=== PATIENT | male | born 1945 | race Caucasian/White ===

== ENCOUNTER → 2022-10-15 12:49 | Outpatient (BNVA) | payer MEDICARE, OTHER, SELFPAY | PROVIDERS: PCP Internal Medicine; Visit Provider Neurological Surgery | DX: M43.16 Spondylolisthesis, lumbar region (principal); M48.062 Spinal stenosis, lumbar region with neurogenic claudication | CPT/HCPCS: 99212 ==

== ENCOUNTER 2022-12-28 08:18 | Inpatient (IN) | payer MEDICARE, OTHER, SELFPAY ==
[2022-12-14 12:13] VITALS: BP 136/62; PULSE 60; RESP 20; O2SAT 97; BMI 30.8
--- NOTE | 2022-12-14 12:23 | P.CONAN_ITS ---
Documented by User: Abiola Mo NP 12/17/22 14:22 HPI - Anesthesia Eval Consult details Narrative: 77yo M for L4-5 Oblique Lumbar Interbody Fusion, 12/28/22 Medically optimized Cardiac optimized (CAD with CABG 2015) Cleared by oncologist Pacer in situ left chest s/p RU lobectomy ~ 2020 r/t lung CA No recent illness. PND x 4 years. No CP/SOB with minimal activity r/t to pain Diabetic sensor on RUE. No insulin pump. FBS ~ 70-140 PMFSH Active Problems Active Problems: All Active Problems (Updated 12/14/22 @ 12:07 by Rossi Hurst RN) Spondylolisthesis, lumbar region (Acute) Lumbar stenosis with neurogenic claudication (Acute) Past Medical History Medical History Back pain CAD (coronary artery disease) Diabetes Elevated cholesterol Hx of cardiac pacemaker Lung cancer Silent myocardial infarction Spinal stenosis Family History Family history of problems with anesthesia: No Surgical History Surgical History H/O colonoscopy History of back surgery History of back surgery History of carpal tunnel release History of lobectomy of lung Hx of bilateral cataract extraction Hx of CABG Hx of tooth extraction History of Problems with Anesthesia: No Social History Social History Are you a primary respiratory care technician to a significant other at home: No Do you presently have visiting nurse or other home services: No Patient Tobacco Use Status: Former Tobacco user Quit Date: age 28's Tobacco use type: Cigarette Years Smoked: 14 Use of substances other than those prescribed or required for medical reasons: No Have you been hit, kicked, punched, or otherwise hurt by someone within the past year? If so, by whom?: No Are you DNR?: No Advance Directives Information Provided: Yes (advised to bring copy DOS) Advance Directives on File: No Recently lost weight without trying: No Eating poorly because of decreased appetite: No Nutrition Risks: No Nutritional Risk Poor oral hygiene: No (full upper denture, some missing teeth-lower but no denture or partial) Meds Allergies Allergy/AdvReac Type Severity Reaction Status Date / Time No Known Allergies Allergy Verified 12/28/22 08:30 Home Medications Medication Instructions Recorded Confirmed Last Taken Type amlodipine 5 mg tablet 5 mg PO DAILY 12/11/22 12/28/22 12/28/22 07:15 History aspirin 81 mg tablet,delayed 81 mg PO DAILY 12/11/22 12/28/22 12/21/22 History release atorvastatin 80 mg tablet 80 mg PO BEDTIME 12/11/22 12/28/22 Unknown History cholecalciferol (vitamin D3) 50 50 mcg PO DAILY 12/11/22 12/28/22 Unknown History mcg (2,000 unit) capsule (Vitamin D3) insulin aspart U-100 100 unit/mL 10 - 40 sliding scale dose subcut 12/11/22 12/28/22 Unknown History (3 mL) subcutaneous pen (Novolog TIDAC FlexPen U-100 Insulin aspart) insulin degludec 200 unit/mL (3 44 unit subcut QAM 12/11/22 12/28/22 12/28/22 07:15 History mL) subcutaneous pen (Tresiba FlexTouch U-200 insulin) metformin 500 mg tablet,extended 1,500 mg PO BEDTIME 12/11/22 12/28/22 Unknown History release 24 hr tramadol 50 mg tablet 50 - 100 mg PO BID PRN Pain 12/11/22 12/28/22 Unknown History metoprolol tartrate 50 mg tablet 25 mg PO BID 12/28/22 12/28/22 Unknown History (Lopressor) Exam Exam Date and Time: December 14, 2022 1223 Height,Weight and Vital Signs: Height 5 ft 7 in Weight 89.3 kg Last Vital Signs Pulse 60 12/14/22 12:13 Resp 20 12/14/22 12:13 BP 136/62 12/14/22 12:13 Pulse Ox 97 12/14/22 12:13 O2 Del Method Room Air 12/14/22 12:13 Pertinent Lab Results Pertinent Lab Results: BMP 11/2022 from outside facility WNL, A1C = 7.8 CBC 11/2022 from outside facility WNL except PLT = 130 Narrative Narrative: Pacer interrogation 12/08/22 normal device funtion without tackyarrhythmias per cardiac note EKG 12/2022 NSR @ 62 LAD Inferior infarct (old) ECHO 2021 LV size is nml. LV systolic function appears grossly nml. LV wall thickness is mildly increased. LVEF 60-65%. No obvious wall motion abnormalities. No dopplar evidence of increased filling pressures. Aortic valve poorly visualized. Probably trileaflet. No aortic stenosis. No aortic regurg. RV is poorly visualized. RV possibly dilated. Free wall not well visualized Pacer wire see in RV No sigificant pericardial effusion Airway Mallampati Class: II TM Dist: >3cm Neck ROM: Full Denture: Upper Loose/Missing/Broken Teeth: Yes (Missing lower teeth) Heart: RRR Lungs: CTAB (RUL dim s/p ectomy) Assessment and Plan Assessment Anesthesia Assessment: Anesthesia Plan Discussed and PAT Visit Final Anesthetic Review Family History of Problems with Anesthesia: No History of Problems with Anesthesia: No Documented by User: Jose Cote MD 12/28/22 10:12 [facility] Past Medical History Medical History Back pain CAD (coronary artery disease) Diabetes Elevated cholesterol Hx of cardiac pacemaker Lung cancer Silent myocardial infarction Spinal stenosis Surgical History Surgical History H/O colonoscopy History of back surgery History of back surgery History of carpal tunnel release History of lobectomy of lung Hx of bilateral cataract extraction Hx of CABG Hx of tooth extraction Social History Social History Are you a primary respiratory care technician to a significant other at home: No Do you presently have visiting nurse or other home services: No Patient Tobacco Use Status: Former Tobacco user Quit Date: age 28's Tobacco use type: Cigarette Years Smoked: 14 Use of substances other than those prescribed or required for medical reasons: No Have you been hit, kicked, punched, or otherwise hurt by someone within the past year? If so, by whom?: No Are you DNR?: No Advance Directives Information Provided: Yes (advised to bring copy DOS) Advance Directives on File: No Recently lost weight without trying: No Eating poorly because of decreased appetite: No Nutrition Risks: No Nutritional Risk Poor oral hygiene: No (full upper denture, some missing teeth-lower but no denture or partial) Meds Allergies Allergy/AdvReac Type Severity Reaction Status Date / Time No Known Allergies Allergy Verified 12/28/22 08:30 Home Medications Medication Instructions Recorded Confirmed Last Taken Type amlodipine 5 mg tablet 5 mg PO DAILY 12/11/22 12/28/22 12/28/22 07:15 History aspirin 81 mg tablet,delayed 81 mg PO DAILY 12/11/22 12/28/22 12/21/22 History release atorvastatin 80 mg tablet 80 mg PO BEDTIME 12/11/22 12/28/22 Unknown History cholecalciferol (vitamin D3) 50 50 mcg PO DAILY 12/11/22 12/28/22 Unknown History mcg (2,000 unit) capsule (Vitamin D3) insulin aspart U-100 100 unit/mL 10 - 40 sliding scale dose subcut 12/11/22 12/28/22 Unknown History (3 mL) subcutaneous pen (Novolog TIDAC FlexPen U-100 Insulin aspart) insulin degludec 200 unit/mL (3 44 unit subcut QAM 12/11/22 12/28/22 12/28/22 07:15 History mL) subcutaneous pen (Tresiba FlexTouch U-200 insulin) metformin 500 mg tablet,extended 1,500 mg PO BEDTIME 12/11/22 12/28/22 Unknown History release 24 hr tramadol 50 mg tablet 50 - 100 mg PO BID PRN Pain 12/11/22 12/28/22 Unknown History metoprolol tartrate 50 mg tablet 25 mg PO BID 12/28/22 12/28/22 Unknown History (Lopressor) Assessment and Plan Final Anesthetic Review NPO: Yes ASA Class: IV Final Preanesthetic Review: No Changes in Pt Med Stat, Meds/Allgs Chart Reviewed, Consent Obtained/Reviewed and Anes Risks/Benef Reviewed Patient Risk: High Procedure Risk: Intermediate Anesthetic Plan Anesthetic Plan: GA and Agree w/ Assess. and Plan Disposition: Standard PACU
[2022-12-28] VITALS (13 sets, daily range): BP systolic 109–172; BP diastolic 61–84; PULSE 60–70; RESP 16–20; TEMP 36.2–36.6; O2SAT 98–100
--- NOTE | ~2022-12-28 | FL_ITS ---
EXAMINATION: XR FLUOROSCOPY WITH IMAGES CLINICAL INFORMATION: Oblique lateral interbody fusion. COMPARISON: None available. TECHNIQUE: Performed by Dr. Waters. 2 C-arms used. Total Dose: 106.2 mGy-cm. Fluoro Time: 1.5 minutes. DAP: 2.527 mGy-m2 Images: 5 images. FINDINGS: Fluoroscopy guidance provided for posterior fusion hardware placement with bilateral transpedicular screws and posterior rods at L4-L5 and L4-L5 disc prosthesis. FL/FL guidance in OR IMPRESSION: Fluoroscopy guidance for lumbar spine surgery.
--- OUTSIDE RECORDS SUMMARY | 2022-12-28 08:26 | XMS_ITS | Continuity of Care Document ---
Author Name Unknown Organization [facility] Address [address] [place] [address]- Care Team Providers Care Stores Naval Name Role Phone Ciro Ragsdale MD Primary Care Physician [place] [facility] [place] [facility] [address] [place] [address] [facility] Attending Physician: Carolyn Yanes MD Admitting Physician: Carolyn Yanes MD Referring Physician: Ciro Ragsdale MD Allergies, Adverse Reactions, Alerts Substance Reaction Severity Status Percocet 5/325 Active Medications aspirin 81 mg oral tablet 81, mg, 1, tablet, By Mouth, Daily, 0, 0, 11/05/07 17:55:02, Print MARINE Number, [id number], Constant Indicator Start Date: 11/05/07 Status: Ordered atorvastatin 40 mg oral tablet 1 tablet = 40 mg, By Mouth, Every other day, 0 Refills, Maintenance, 12/21/19 13:10:00 EDT Start Date: 12/21/19 Status: Ordered Glucagon Emergency Kit See Instructions, PRN, # 2 each, Refills 3, Tot. Refills 3, Maintenance, Blood Glucose, use as directed for Type 1 Diabetes Mellitus, 06/01/16 18:10:28, Compound Start Date: 06/01/16 Stop Date: 09/29/16 Status: Ordered latanoprost 0.005% ophthalmic solution 1 drops, Eyes, Both, Daily at bedtime, # 3 mL, 0 Refills, Maintenance, 12/21/19 13:09:00 EDT, OphthSolution Start Date: 12/21/19 Status: Ordered loratadine 10 mg oral tablet 10 mg, 1, tablet, By Mouth, Daily, # 90 tablet, Refills 0, Maintenance, 12/21/19 13:10:00 EDT Start Date: 12/21/19 Status: Ordered metFORMIN 500 mg oral tablet 3 tablet = 1,500 mg, By Mouth, Daily, 0 Refills, Maintenance, 12/21/19 13:11:00 EDT Start Date: 12/21/19 Status: Ordered NovoLOG FlexPen 100 units/mL subcutaneous solution See Instructions, INJECT 40 UNITS SC BEFORE EACH MEAL. DM / E 10.65 90 DAY = 7 BOXES, # 105 mL, 0 Refills, Maintenance, 09/14/16 18:08:00 Start Date: 09/14/16 Status: Ordered One Touch Ultra Test Strips See Instructions, # 550 each, Refills 3, Tot. Refills 3, Maintenance, check glucose TID ac and pc, up to 6 per day, 12/02/16 11:44:00, NO FURTHER REFILLS - PATIENT NEEDS TO CALL [phone] FOR APPT OR CONTACT PCP, Compound Start Date: 12/02/16 Status: Ordered Tresiba FlexTouch 200 units/mL subcutaneous solution = 72 units, Subcutaneous Infusion, Daily, 0 Refills, Maintenance, 06/01/16 14:00:54 EST Start Date: 06/01/16 Status: Ordered Problem List Condition Effective Dates Status Health Status Inform ant Diabetes, insulin(Confirmed) Active SOBOE (shortness of breath o n exertion)(Confirmed) Active Hemangioma of liver(Confirmed) Active HLD (hyperlipidemia)(Confirmed) Active HTN (hypertension)(Confirmed) Active Hypertriglyceridemia(Confirmed) Active Hypothyroid(Confirmed) Active Lumbar spinal stenosis(Confirmed) Active Neuropathy(Confirmed) Active Obesity(Confirmed) Active Old inferior myocardial infarction(Confirmed) 11/04/12 Active Retinopathy(Confirmed) Active Triple vessel coronary arter y disease(Confirmed) Active Social History Social History Type Response Smoking Status Former smoker, quit more than 30 days ago entered on: 02/23/19 Sex
--- OUTSIDE RECORDS SUMMARY | 2022-12-28 08:26 | XMS_ITS | Continuity of Care Document ---
Author Name Unknown Organization [facility] Address [address] [place] [address]- Care Team Providers Care Accounts Supervisor Name Role Phone Ciro Ragsdale MD Primary Care Physician [place] [facility] [place]/17/19 - 04/27/19 [facility] [address] [place] [address]- [facility] Attending Physician: Admtr, Viv Admitting Physician: Admtr, Ar8 Referring Physician: Admtr, Ar8 Allergies, Adverse Reactions, Alerts Substance Reaction Severity Status Percocet 5/325 Active Medications aspirin 81 mg oral tablet 81, mg, 1, tablet, By Mouth, Daily, 0, 0, 11/05/07 17:55:02, Print MARINE Number, [id number], Constant Indicator Start Date: 11/05/07 Status: Ordered atorvastatin 80 mg oral tablet 0.5 tablet = 40 mg, By Mouth, Daily at bedtime, EVERY OTHER DAY, 0 Refills, Maintenance Start Date: 10/03/15 Status: Ordered fluticasone 50 mcg/inh nasal spray 1 sprays, Nares, Both, 2 times a day, # 16 Gm, 0 Refills, Maintenance, 01/12/19 14:57:22 EDT, [place] Start Date: 01/12/19 Status: Ordered Glucagon Emergency Kit See Instructions, PRN, # 2 each, Refills 3, Tot. Refills 3, Maintenance, Blood Glucose, use as directed for Type 1 Diabetes Mellitus, 06/01/16 18:10:28, Compound Start Date: 06/01/16 Stop Date: 09/29/16 Status: Ordered metFORMIN 500 mg oral tablet, extended release 1 tablet = 500 mg, By Mouth, 3 times a day before meals, # 270 tablet, 3 Refills, Maintenance, 06/01/16 18:10:52 Start Date: 06/01/16 Status: Ordered montelukast 10 mg oral tablet 10 mg, 1, tablet, By Mouth, Daily, Refills 0, Maintenance, 01/12/19 14:57:07 EDT Start Date: 01/12/19 Status: Ordered NovoLOG FlexPen 100 units/mL subcutaneous solution See Instructions, INJECT 40 UNITS SC BEFORE EACH MEAL. DM 1/ E 10.65 90 DAY = 7 BOXES, # 105 mL, 0 Refills, Maintenance, 09/14/16 18:08:00 Start Date: 09/14/16 Status: Ordered NovoLog Inj as directed, Subcutaneous Infusion, 3 times a day, inject 40 units sc before each meal. Novolog Flex Pen, 0 Refills, Maintenance, 12/08/10 16:25:38 Start Date: 12/08/10 Status: Ordered One Touch Ultra Test Strips See Instructions, # 550 each, Refills 3, Tot. Refills 3, Maintenance, check glucose TID ac and pc, up to 6 per day, 12/02/16 11:44:00, NO FURTHER REFILLS - PATIENT NEEDS TO CALL [phone] FOR APPT OR CONTACT PCP, Compound Start Date: 12/02/16 Status: Ordered Tresiba FlexTouch 200 units/mL subcutaneous solution Subcutaneous Infusion, Daily, 0 Refills, Maintenance, 06/01/16 14:00:54 Start Date: 06/01/16 Status: Ordered Problem List Condition Effective Dates Status Health Status Inform ant Diabetes, insulin(Confirmed) Active SOBOE (shortness of breath o n exertion)(Confirmed) Active Hemangioma of liver(Confirmed) Active HLD (hyperlipidemia)(Confirmed) Active HTN (hypertension)(Confirmed) Active Hypertriglyceridemia(Confirmed) Active Hypothyroid(Confirmed) Active Lumbar spinal stenosis(Confirmed) Active Neuropathy(Confirmed) Active Obesity(Confirmed) Active 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
--- OUTSIDE RECORDS SUMMARY | 2022-12-28 08:27 | XMS_ITS | Continuity of Care Document ---
Author Name Unknown Organization [facility] Address [address] [place] [address]- Care Team Providers Care Mortgage Sales Manager Name Role Phone Ciro Ragsdale MD Primary Care Physician [place] [facility] [place]19 [facility] [address] [place] [phone]- [facility] Attending Physician: Haroldo Franco MD Admitting Physician: Haroldo Franco MD Referring Physician: Ciro Ragsdale MD Allergies, Adverse Reactions, Alerts Substance Reaction Severity Status Percocet 5/325 Active Medications aspirin 81 mg oral tablet 81, mg, 1, tablet, By Mouth, Daily, 0, 0, 11/05/07 17:55:02, Print MARINE Number, [id number], Constant Indicator Start Date: 11/05/07 Status: Ordered Glucagon Emergency Kit See Instructions, PRN, # 2 each, Refills 3, Tot. Refills 3, Maintenance, Blood Glucose, use as directed for Type 1 Diabetes Mellitus, 06/01/16 18:10:28, Compound Start Date: 06/01/16 Stop Date: 09/29/16 Status: Ordered NovoLOG FlexPen 100 units/mL subcutaneous [...] FURTHER REFILLS - PATIENT NEEDS TO CALL [phone] FOR APPT OR CONTACT PCP, Compound Start Date: 12/02/16 Status: Ordered Tresiba FlexTouch 200 units/mL subcutaneous solution = 68 units, Subcutaneous Infusion, Daily, 0 Refills, Maintenance, [...]
--- OUTSIDE RECORDS SUMMARY | 2022-12-28 08:27 | XMS_ITS | Continuity of Care Document ---
Author Name Unknown Organization [facility] Address [address] [place] [address]- Care Team Providers Care Medication Administration Professional Name Role Phone Ciro Ragsdale MD Primary Care Physician En[place] [facility] [place] Date(s): 12/10/20 - 01/25/21 [facility] [address] [place] [address]- Attending Physician: Lester Pedroza MD Admitting Physician: Lester Pedroza MD Referring Physician: Ciro Ragsdale MD Allergies, Adverse Reactions, Alerts Substance Reaction Severity Status Percocet 5/325 Active Medications amLODIPine 5 mg oral tablet 5 mg, 1, tablet, By Mouth, Daily, # 30 tablet, Refills 0, Tot. Refills 0, Maintenance, 06/12/20 9:51:00 EST, Route to Pharmacy Electronically, [facility]/pharmacy #[id number], Partial fill upon patient request ifthe prescription is for a schedule II opioid drug.,... Start Date: 06/12/20 Status: Ordered aspirin 81 mg oral tablet 81, mg, 1, tablet, By Mouth, Daily, 0, 0, 11/05/07 17:55:02, Print MARINE Number, [id number], Constant Indicator Start Date: 11/05/07 Status: Ordered atorvastatin 40 mg oral tablet 1 tablet = 40 mg, By Mouth, Every other day, 0 Refills, Maintenance, 12/21/19 13:10:00 EDT Start Date: 12/21/19 Status: Ordered famotidine 40 mg oral tablet 1 tablet = 40 mg, By Mouth, Daily at bedtime, 0 Refills, Maintenance, 12/19/20 10:07:00 EDT, Partial fill upon patient request if the prescription is for a schedule II opioid drug. Start Date: 12/19/20 Status: Ordered Glucagon Emergency Kit See Instructions, [...] FURTHER REFILLS - PATIENT NEEDS TO CALL [phone] FOR APPT OR CONTACT PCP, Compound Start [...]
--- OUTSIDE RECORDS SUMMARY | 2022-12-28 08:27 | XMS_ITS | Continuity of Care Document ---
Author Name Unknown Organization [facility] ter Address [address] [place] [address]- Care Team Providers Care Informix Developer Name Role Phone Ciro Ragsdale MD Primary Care Physician [place] [facility] [place] 12/03/21 - 12/03/[address] [address]- Attending Physician: Stephanie Ellison MD Allergies, Adverse Reactions, Alerts Substance Reaction Severity Status Percocet 5/325 Active Medications amLODIPine 5 mg oral tablet 5 mg, 1, tablet, By Mouth, Daily, # 30 tablet, Refills 0, Tot. Refills 0, Maintenance, 06/12/20 9:51:00 EST, Route to Pharmacy Electronically, [facility]/pharmacy #[id number], Partial fill upon patient request ifthe prescription is for a schedule II opioid drug.,... Start Date: 06/12/20 Status: Ordered aspirin 81 mg oral tablet 81, mg, 1, tablet, By Mouth, Daily, 0, 0, 11/05/07 17:55:02, Print MARINE Number, [id number], Constant Indicator Start Date: 11/05/07 Status: Ordered [...] Date: 06/01/16 Stop Date: 09/29/16 Status: Ordered Keytruda = 200 mg, IV Infusion, Every 21 days, 0 Refills, Maintenance, 08/05/21 8:18:00 EDT, Partial fill upon patient request if the prescription is for a schedule II opioid drug. 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
--- OUTSIDE RECORDS SUMMARY | 2022-12-28 08:27 | XMS_ITS | Continuity of Care Document ---
Author Name Unknown Organization [facility] Address [address] [place], [place] [address]viki rooney, [address] [place] [address]- Care Team Providers Care Patron Attendant Name Role Phone Ciro Ragsdale MD Primary Care Physician Encounter [facility] [place] Date(s): 08/04/22 - 09/03/[address], [address] [place], [place] [address] Attending Physician: Admtr, Constantine8 Admitting Physician: Admtr, Ar8 Referring Physician: Admtr, Ar8 Allergies, Adverse Reactions, Alerts Substance Reaction Severity Status Percocet 5/325 Active Medications amLODIPine 5 mg oral tablet 5 mg, 1, tablet, By Mouth, Daily, # 30 tablet, Refills 0, Tot. Refills 0, Maintenance, 06/12/20 9:51:00 EST, Route to Pharmacy Electronically, [facility]/pharmacy #[id number], Partial fill upon patient request ifthe prescription is for a schedule II opioid drug.,... Start Date: 06/12/20 Status: Ordered aspirin 81 mg oral tablet 81, mg, 1, tablet, By Mouth, Daily, 0, 0, 11/05/07 17:55:02, Print MARINE Number, [id number], Constant Indicator Start Date: 11/05/07 Status: Ordered [...] FURTHER REFILLS - PATIENT NEEDS TO CALL [phone] FOR APPT OR CONTACT PCP, Compound Start Date: 12/02/16 Status: Ordered Tresiba FlexTouch 200 units/mL subcutaneous solution = 72 units, Subcutaneous Infusion, Daily, 0 Refills, Maintenance, 06/01/16 14:00:54 EST Start Date: 06/01/16 Status: Ordered Problem List Condition Confirmation Course Effective Dates Status Health Status Informant Diabetes, insulin Confirmed Active SOBOE (shortness of breath on exertion) Confirmed Active Hemangioma of liver Confirmed Active HLD (hyperlipidemia) Confirmed Active HTN (hypertension) Confirmed Active Hypertriglyceridemia Confirmed Active Hypothyroid Confirmed Active Lumbar spinal stenosis Confirmed Active Neuropathy Confirmed Active Obese class I Confirmed Active Obesity Confirmed Active Old inferior myocardial infarction Confirmed 11/04/12 Active Retinopathy Confirmed Active Triple vessel coronary artery disease Confirmed Active Social History Social History Type Response Smoking Status Former smoker, quit more than 30 days ago entered on: 02/23/19 Sex Note * Gisella Avila: PERFORM Event Display: Cardiovascular Results Scanned Authored Date: [id number] * Gisella Avila: PERFORM Event Display: Laboratory Results Scanned Authored Date: [id number] * Sami Miller: PERFORM Event Display: Radiology Results Scanned Authored Date: [id number] Patient Care team information Care Team Personnel Name: Carol Meade RN Position: [facility] RN Member Role: Primary Care Nurse Name: Samuel Richmond RN Position: [facility] JULISSA Nurse Member Role: Primary Care Nurse Name: González Chavez RN Position: [facility] RN Member Role: Primary Care Nurse Name: Ciro Ragsdale MD Position: [facility] Physician (General Medicine) Member Role: PCP Address: Address: [address] [place] [address] Care Team Related Persons Name: MEI CONNOR Address: [address] [address]
--- OUTSIDE RECORDS SUMMARY | 2022-12-28 08:27 | XMS_ITS | Continuity of Care Document ---
Author Name Unknown Organization [facility] Address [address] [place] [address]- Care Team Providers Care Millroom Supervisor Name Role Phone Ragsdale Ciro CASTRO S Primary Care Physician Encounter [facility] [place] Date(s): 03/02/22 - 04/01/22 [facility] [address] [place] [address]- Attending Physician: Viv Doty Admitting Physician: Viv Doty Referring Physician: AdmtrViv Allergies, Adverse Reactions, Alerts Substance Reaction Severity Status Percocet 5/325 Active Medications amLODIPine 5 mg oral tablet 5 mg, 1, tablet, By Mouth, Daily, # 30 tablet, Refills 0, Tot. Refills 0, Maintenance, 06/12/20 9:51:00 EST, Route to Pharmacy Electronically, [facility]/pharmacy #[id number], Partial fill upon patient request ifthe prescription is for a schedule II opioid drug.,... Start Date: 06/12/20 Status: Ordered aspirin 81 mg oral tablet 81, mg, 1, tablet, By Mouth, Daily, 0, 0, 11/05/07 17:55:02, Print MARINE Number, [id number], Constant Indicator Start Date: 11/05/07 Status: Ordered [...] FURTHER REFILLS - PATIENT NEEDS TO CALL [phone] FOR APPT OR CONTACT PCP, Compound Start [...] 30 days ago entered on: 02/23/19 Sex Patient Care team information Care Team Personnel Name: Carol Meade RN Position: [facility] RN Member Role: Primary Care Nurse Name: Samuel Richmond RN Position: [facility] AMB Nurse Member Role: Primary Care Nurse Name: Scott RATLIFF, González Franklin Position: [facility] RN Member Role: Primary Care Nurse Name: Melyssa CASTRO, Ciro Franklin Position: [facility] Physician (General Medicine) Member Role: PCP Address: Address: [address] [place] [address] Care Team Related Persons Name: MEI CONNOR Address: [address] [address]
--- OUTSIDE RECORDS SUMMARY | 2022-12-28 08:27 | XMS_ITS | Continuity of Care Document ---
Author Name Unknown Organization [facility] Address [address] [place] [address]- Care Team Providers Care Hand Leather Trimmer Name Role Phone Ciro Ragsdale MD S Primary Care Physician Encounter [facility] [place] Date(s): 06/05/20 - 07/05/20 [facility] [address] [place] [id number] Allergies, Adverse Reactions, Alerts Substance Reaction Severity Status Percocet 5/325 Active Medications amLODIPine 5 mg oral tablet 5 mg, 1, tablet, By Mouth, Daily, # 30 tablet, Refills 0, Tot. Refills 0, Maintenance, 06/12/20 9:51:00 EST, Route to Pharmacy Electronically, [facility]/pharmacy #[id number], Partial fill upon patient request ifthe prescription is for a schedule II opioid drug.,... Start Date: 06/12/20 Status: Ordered aspirin 81 mg oral tablet 81, mg, 1, tablet, By Mouth, Daily, 0, 0, 11/05/07 17:55:02, Print MARINE Number, [id number], Constant Indicator Start Date: 11/05/07 Status: Ordered [...] FURTHER REFILLS - PATIENT NEEDS TO CALL [phone] FOR APPT OR CONTACT PCP, Compound Start [...]
--- OUTSIDE RECORDS SUMMARY | 2022-12-28 08:27 | XMS_ITS | Continuity of Care Document ---
Author Name Unknown Organization [facility] Address [address] [place] [address]- Care Team Providers Care Reinforcing Rod Layer Name Role Phone Ciro Ragsdale MD Primary Care Physician [place] [facility] [place]/16/20 - 08/14/20 [facility] [address] [place] [id number] Attending Physician: Lester Pedroza MD Admitting Physician: Lester Pedroza MD Referring Physician: Ciro Ragsdale MD Allergies, Adverse Reactions, Alerts Substance Reaction Severity Status Percocet 5/325 Active Medications amLODIPine 5 mg oral tablet 5 mg, 1, tablet, By Mouth, Daily, # 30 tablet, Refills 0, Tot. Refills 0, Maintenance, 06/12/20 9:51:00 EST, Route to Pharmacy Electronically, [facility]/pharmacy #[id number], Partial fill upon patient request ifthe prescription is for a schedule II opioid drug.,... Start Date: 06/12/20 Status: Ordered aspirin 81 mg oral tablet 81, mg, 1, tablet, By Mouth, Daily, 0, 0, 11/05/07 17:55:02, Print MARINE Number, [id number], Constant Indicator Start Date: 11/05/07 Status: Ordered [...] FURTHER REFILLS - PATIENT NEEDS TO CALL [phone] FOR APPT OR CONTACT PCP, Compound Start [...]
--- OUTSIDE RECORDS SUMMARY | 2022-12-28 08:27 | XMS_ITS | Continuity of Care Document ---
Author Name Unknown Organization [facility] Address [address] [place] [address]- Care Team Providers Care Quarantine Officer Name Role Phone Ciro Ragsdale MD Primary Care Physician Encounter [facility] [place] Date(s): 12/21/19 - 01/20/20 [facility] [address] [place] [address] [facility] Attending Physician: AdmViv escobar Admitting Physician: Admtr, Viv Referring Physician: Admtr, Ar8 Allergies, Adverse Reactions, Alerts Substance Reaction Severity Status Percocet 5/325 Active Medications aspirin 81 mg oral tablet 81, mg, 1, tablet, By Mouth, Daily, 0, 0, 11/05/07 17:55:02, Print MARINE Number, [id number], Constant Indicator Start Date: 11/05/07 Status: Ordered [...] FURTHER REFILLS - PATIENT NEEDS TO CALL [phone] FOR APPT OR CONTACT PCP, Compound Start [...]
--- OUTSIDE RECORDS SUMMARY | 2022-12-28 08:27 | XMS_ITS | Continuity of Care Document ---
Author Name Unknown Organization [facility] Address [address] [place] [address]- Care Team Providers Care Front Desk Assistant Name Role Phone Ragsdale Ciro CASTRO S Primary Care Physician [place] [facility] [place] Date(s): 12/25/21 - 01/24/22 [facility] [address] [place] [address]- Attending Physician: Viv Doty Admitting Physician: Viv Doty Referring Physician: AdmtrViv Allergies, Adverse Reactions, Alerts Substance Reaction Severity Status Percocet 5/325 Active Medications amLODIPine 5 mg oral tablet 5 mg, 1, tablet, By Mouth, Daily, # 30 tablet, Refills 0, Tot. Refills 0, Maintenance, 06/12/20 9:51:00 EST, Route to Pharmacy Electronically, [facility]/pharmacy #[id number], Partial fill upon patient request ifthe prescription is for a schedule II opioid drug.,... Start Date: 06/12/20 Status: Ordered aspirin 81 mg oral tablet 81, mg, 1, tablet, By Mouth, Daily, 0, 0, 11/05/07 17:55:02, Print MARINE Number, [id number], Constant Indicator Start Date: 11/05/07 Status: Ordered [...] FURTHER REFILLS - PATIENT NEEDS TO CALL [phone] FOR APPT OR CONTACT PCP, Compound Start [...] 30 days ago entered on: 02/23/19 Sex Care Team Personnel Name: Ciro Ragsdale MD Address: [address] [place] [address]
--- OUTSIDE RECORDS SUMMARY | 2022-12-28 08:27 | XMS_ITS | Continuity of Care Document ---
Author Name Unknown Organization [facility] Address [address] [place] [address]- Care Team Providers Care Transcriber Name Role Phone Ragsdale Ciro CASTRO S Primary Care Physician Encounter [facility] [place] Date(s): 08/05/21 - 09/04/21 [facility] [address] [place] [address]- Attending Physician: Viv Doty Admitting Physician: Viv Doty Referring Physician: AdmtrViv Allergies, Adverse Reactions, Alerts Substance Reaction Severity Status Percocet 5/325 Active Medications amLODIPine 5 mg oral tablet 5 mg, 1, tablet, By Mouth, Daily, # 30 tablet, Refills 0, Tot. Refills 0, Maintenance, 06/12/20 9:51:00 EST, Route to Pharmacy Electronically, [facility]/pharmacy #[id number], Partial fill upon patient request ifthe prescription is for a schedule II opioid drug.,... Start Date: 06/12/20 Status: Ordered aspirin 81 mg oral tablet 81, mg, 1, tablet, By Mouth, Daily, 0, 0, 11/05/07 17:55:02, Print MARINE Number, [id number], Constant Indicator Start Date: 11/05/07 Status: Ordered [...] FURTHER REFILLS - PATIENT NEEDS TO CALL [phone] FOR APPT OR CONTACT PCP, Compound Start [...]
--- OUTSIDE RECORDS SUMMARY | 2022-12-28 08:27 | XMS_ITS | Continuity of Care Document ---
Author Name Unknown Organization [facility] Address [address] [address]- Care Team Providers Care Take Away Attendant Name Role Phone Ciro Ragsdale MD Primary Care Physician Encounter [facility] [place] Date(s): 12/25/20 - 01/24/21 [facility] [address] [address] Referring Physician: Khadijah Vaughan Allergies, Adverse Reactions, Alerts Substance Reaction Severity Status Percocet 5/325 Active Medications amLODIPine 5 mg oral tablet 5 mg, 1, tablet, By Mouth, Daily, # 30 tablet, Refills 0, Tot. Refills 0, Maintenance, 06/12/20 9:51:00 EST, Route to Pharmacy Electronically, [facility]/pharmacy #[id number], Partial fill upon patient request ifthe prescription is for a schedule II opioid drug.,... Start Date: 06/12/20 Status: Ordered aspirin 81 mg oral tablet 81, mg, 1, tablet, By Mouth, Daily, 0, 0, 11/05/07 17:55:02, Print MARINE Number, [id number], Constant Indicator Start Date: 11/05/07 Status: Ordered [...] FURTHER REFILLS - PATIENT NEEDS TO CALL [phone] FOR APPT OR CONTACT PCP, Compound Start [...]
--- OUTSIDE RECORDS SUMMARY | 2022-12-28 08:27 | XMS_ITS | Continuity of Care Document ---
Author Name Unknown Organization [facility] Address [address] [place] [address]- Care Team Providers Care Inventory Control Clerk Name Role Phone Ciro Ragsdale MD Primary Care Physician Encounter [facility] [place] Date(s): 08/07/19 - 08/17/19 [facility] [address] [place] [address]- [facility] Attending Physician: Admtr, Ar8 Admitting Physician: Admtr, Ar8 Referring Physician: Admtr, Ar8 Allergies, Adverse Reactions, Alerts Substance Reaction Severity Status Percocet 5/325 Active Medications aspirin 81 mg oral tablet 81, mg, 1, tablet, By Mouth, Daily, 0, 0, 11/05/07 17:55:02, Print MARINE Number, [id number], Constant Indicator Start Date: 11/05/07 Status: Ordered [...] FURTHER REFILLS - PATIENT NEEDS TO CALL [phone] FOR APPT OR CONTACT PCP, Compound Start [...]
--- OUTSIDE RECORDS SUMMARY | 2022-12-28 08:27 | XMS_ITS | Continuity of Care Document ---
Author Name Unknown Organization [facility] Address [address] [place] [address]- Care Team Providers Care Flight Operations Dispatch Clerk Name Role Phone Ciro Ragsdale MD Primary Care Physician Encounter [facility] [place] Date(s): 04/21/19 - 06/10/19 [facility] [address] [place] [address]- [facility] Attending Physician: Lester Pedroza MD Admitting Physician: Lester Pedroza MD Referring Physician: Ciro Ragsdale MD Allergies, Adverse Reactions, Alerts Substance Reaction Severity Status Percocet 5/325 Active Medications aspirin 81 mg oral tablet 81, mg, 1, tablet, By Mouth, Daily, 0, 0, 11/05/07 17:55:02, Print MARINE Number, [id number], Constant Indicator Start Date: 11/05/07 Status: Ordered [...] FURTHER REFILLS - PATIENT NEEDS TO CALL [phone] FOR APPT OR CONTACT PCP, Compound Start [...]
--- OUTSIDE RECORDS SUMMARY | 2022-12-28 08:27 | XMS_ITS | Continuity of Care Document ---
Author Name Unknown Organization [facility] Address [address] [address]- Care Team Providers Care Steam Shovel Oiler Name Role Phone Ciro Ragsdale MD Primary Care Physician Encounter [facility] [place] Date(s): 10/29/20 - 11/28/20 [facility] [address] [address] Allergies, Adverse Reactions, Alerts Substance Reaction Severity Status Percocet 5/325 Active Medications amLODIPine 5 mg oral tablet 5 mg, 1, tablet, By Mouth, Daily, # 30 tablet, Refills 0, Tot. Refills 0, Maintenance, 06/12/20 9:51:00 EST, Route to Pharmacy Electronically, [facility]/pharmacy #[id number], Partial fill upon patient request ifthe prescription is for a schedule II opioid drug.,... Start Date: 06/12/20 Status: Ordered aspirin 81 mg oral tablet 81, mg, 1, tablet, By Mouth, Daily, 0, 0, 11/05/07 17:55:02, Print MARINE Number, [id number], Constant Indicator Start Date: 11/05/07 Status: Ordered [...] FURTHER REFILLS - PATIENT NEEDS TO CALL [phone] FOR APPT OR CONTACT PCP, Compound Start [...]
--- OUTSIDE RECORDS SUMMARY | 2022-12-28 08:27 | XMS_ITS | Continuity of Care Document ---
Author Name Unknown Organization [facility] Address [address] [place] [address]- Care Team Providers Care Practicing Dermatologist Name Role Phone Ciro Ragsdale MD Primary Care Physician En[place] [facility] [place] Date(s): 04/20/19 - 08/18/[address] [address] [place] Attending Physician: Radha Quinones MD Admitting Physician: Radha Quinones MD Referring Physician: Carolyn Yanes MD Allergies, Adverse Reactions, Alerts Substance Reaction Severity Status Percocet 5/325 Active Medications aspirin 81 mg oral tablet 81, mg, 1, tablet, By Mouth, Daily, 0, 0, 11/05/07 17:55:02, Print MARINE Number, [id number], Constant Indicator Start Date: 11/05/07 Status: Ordered [...] 0 Refills, Maintenance, 12/08/10 16:25:38 Start Date: 8/1/11 Status: Ordered One Touch Ultra Test Strips See Instructions, # 550 each, Refills 3, Tot. Refills 3, Maintenance, check glucose TID ac and pc, up to 6 per day, 12/02/16 11:44:00, NO FURTHER REFILLS - PATIENT NEEDS TO CALL [phone] FOR APPT OR CONTACT PCP, Compound Start [...]
--- OUTSIDE RECORDS SUMMARY | 2022-12-28 08:27 | XMS_ITS | Continuity of Care Document ---
Author Name Unknown Organization [facility] Address [address] [place], [place] [address]viki rooney, [address] [place] [address]- Care Team Providers Care Grey Roll Man Name Role Phone Ciro Ragsdale MD Primary Care Physician Encounter [facility] [place] Date(s): 08/04/22 - 08/11/22 [facility] [address] [place] [address] Drive, [address] [place], [place] [address] Attending Physician: Pedrito Garcia MD Referring Physician: Buddy Hoffman MD Allergies, Adverse Reactions, Alerts Substance Reaction Severity Status Percocet 5/325 Active Medications amLODIPine 5 mg oral tablet 5 mg, 1, tablet, By Mouth, Daily, # 30 tablet, Refills 0, Tot. Refills 0, Maintenance, 06/12/20 9:51:00 EST, Route to Pharmacy Electronically, [facility]/pharmacy #[id number], Partial fill upon patient request ifthe prescription is for a schedule II opioid drug.,... 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 Vital Signs Most recent to oldest [Reference Range]: 1 Height 170 cm (08/04/22 2:59 PM) Weight 97.4 kg (08/04/22 2:59 PM) Body Mass Index [18.5-24.99 kg/m2] 33.7 kg/m2 *>HHI* (08/04/22 2:59 PM) Social History Social History Type Response Smoking Status Former smoker, quit more than 30 days ago entered on: 02/23/19 Sex Patient Care team information Care Team Personnel Name: Carol Meade RN Position: [facility] RN Member Role: Primary Care Nurse Name: Samuel Richmond RN Position: [facility] JULISSA Nurse Member Role: Primary Care Nurse Name: González Chavez RN Position: [facility] RN Member Role: Primary Care Nurse Name: Ciro Ragsdale MD Position: [facility] Physician (General Medicine) Member Role: PCP Address: Address: [address] [place] [address] Care Team Related Persons Name: MEI CONNOR Address: [address] [address]
--- OUTSIDE RECORDS SUMMARY | 2022-12-28 08:27 | XMS_ITS | Continuity of Care Document ---
Author Name Unknown Organization [facility] Address [address] [place], [place] [address]viki rooney, [address] [place] [address]- Care Team Providers Care Substation Mechanic Name Role Phone RagsdaleCiro stapleton MD Primary Care Physician [place] [facility] [place] - 07/09/22 [facility] [address] [place] [address] Drive, [address] [place], [place] [address] Allergies, Adverse Reactions, Alerts Substance Reaction Severity Status Percocet 5/325 Active Medications amLODIPine 5 mg oral tablet 5 mg, 1, tablet, By Mouth, Daily, # 30 tablet, Refills 0, Tot. Refills 0, Maintenance, 06/12/20 9:51:00 EST, Route to Pharmacy Electronically, [facility]/pharmacy #[id number], Partial fill upon patient request ifthe prescription is for a schedule II opioid drug.,... Start Date: 06/12/20 Status: Ordered aspirin 81 mg oral tablet 81, mg, 1, tablet, By Mouth, Daily, 0, 0, 11/05/07 17:55:02, Print MARINE Number, [id number], Constant Indicator Start Date: 11/05/07 Status: Ordered [...] FURTHER REFILLS - PATIENT NEEDS TO CALL [phone] FOR APPT OR CONTACT PCP, Compound Start [...] Team Personnel Name: Carol Meade RN Position: [facility] RN Member Role: Primary Care Nurse Name: Samuel Richmond RN Position: [facility] AMB Nurse Member Role: Primary Care Nurse Name: Scott RATLIFF, González Franklin Position: [facility] RN Member Role: Primary Care Nurse Name: Melyssa CASTRO, Ciro Franklin Position: [facility] Physician (General Medicine) Member Role: PCP Address: Address: [address] [place] [address] Care Team Related Persons Name: MEI CONNOR Address: [address] [address]
--- OUTSIDE RECORDS SUMMARY | 2022-12-28 08:27 | XMS_ITS | Continuity of Care Document ---
Author Name Unknown Organization [facility] Address [address] [place] [address]- Care Team Providers Care Finance And Administration Manager Name Role Phone Ciro Ragsdale MD S Primary Care Physician Encounter [facility] [place] Date(s): 12/28/19 - 01/27/20 [facility] [address] [place] [address] [facility] Allergies, Adverse Reactions, Alerts Substance Reaction Severity Status Percocet 5/325 Active Medications aspirin 81 mg oral tablet 81, mg, 1, tablet, By Mouth, Daily, 0, 0, 11/05/07 17:55:02, Print MARINE Number, [id number], Constant Indicator Start Date: 11/05/07 Status: Ordered [...] FURTHER REFILLS - PATIENT NEEDS TO CALL [phone] FOR APPT OR CONTACT PCP, Compound Start [...]
--- OUTSIDE RECORDS SUMMARY | 2022-12-28 08:27 | XMS_ITS | Continuity of Care Document ---
Author Name Unknown Organization [facility] Address [address] [address]- Care Team Providers Care Band Log Mill And Carriage Operator Name Role Phone Ciro Ragsdale MD Primary Care Physician Encounter [facility] [place] Date(s): 07/11/20 - 08/10/20 [facility] [address] [place] [id number] Allergies, Adverse Reactions, Alerts Substance Reaction Severity Status Percocet 5/325 Active Medications amLODIPine 5 mg oral tablet 5 mg, 1, tablet, By Mouth, Daily, # 30 tablet, Refills 0, Tot. Refills 0, Maintenance, 06/12/20 9:51:00 EST, Route to Pharmacy Electronically, [facility]/pharmacy #[id number], Partial fill upon patient request ifthe prescription is for a schedule II opioid drug.,... Start Date: 06/12/20 Status: Ordered aspirin 81 mg oral tablet 81, mg, 1, tablet, By Mouth, Daily, 0, 0, 11/05/07 17:55:02, Print MARINE Number, [id number], Constant Indicator Start Date: 11/05/07 Status: Ordered [...] FURTHER REFILLS - PATIENT NEEDS TO CALL [phone] FOR APPT OR CONTACT PCP, Compound Start [...]
--- OUTSIDE RECORDS SUMMARY | 2022-12-28 08:27 | XMS_ITS | Continuity of Care Document ---
Author Name Unknown Organization [facility] Address [facility] [place] [address]- Care Team Providers Care Oim Consultant Name Role Phone Ciro Ragsdale MD S Primary Care Physician Encounter [facility] [place] Date(s): 06/12/20 - 07/12/20 [facility] [address] [place] [id number] Attending Physician: Viv Doty Admitting Physician: AdmtrViv Referring Physician: Admtr, Ar8 Allergies, Adverse Reactions, Alerts Substance Reaction Severity Status Percocet 5/325 Active Medications amLODIPine 5 mg oral tablet 5 mg, 1, tablet, By Mouth, Daily, # 30 tablet, Refills 0, Tot. Refills 0, Maintenance, 06/12/20 9:51:00 EST, Route to Pharmacy Electronically, [facility]/pharmacy #[id number], Partial fill upon patient request ifthe prescription is for a schedule II opioid drug.,... Start Date: 06/12/20 Status: Ordered aspirin 81 mg oral tablet 81, mg, 1, tablet, By Mouth, Daily, 0, 0, 11/05/07 17:55:02, Print MARINE Number, [id number], Constant Indicator Start Date: 11/05/07 Status: Ordered [...] FURTHER REFILLS - PATIENT NEEDS TO CALL [phone] FOR APPT OR CONTACT PCP, Compound Start [...]
--- OUTSIDE RECORDS SUMMARY | 2022-12-28 08:27 | XMS_ITS | Continuity of Care Document ---
Author Name Unknown Organization [facility] Address [address] [place] [address]- Care Team Providers Care Shop Welder Name Role Phone Ciro Ragsdale MD Primary Care Physician Encounter [facility] [place] Date(s): 04/17/19 - 04/17/19 [facility] [address] [place] [address] [facility] Discharge Disposition: A-D/C Home Attending Physician: Haroldo Franco MD Admitting Physician: Haroldo Franco MD Referring Physician: Ciro Ragsdale MD Allergies, Adverse Reactions, Alerts Substance Reaction Severity Status Percocet 5/325 Active Medications aspirin 81 mg oral tablet 81, mg, 1, tablet, By Mouth, Daily, 0, 0, 11/05/07 17:55:02, Print MARINE Number, [id number], Constant Indicator Start Date: 11/05/07 Status: Ordered atorvastatin 80 mg oral tablet 0.5 tablet = 40 mg, By Mouth, Daily at bedtime, EVERY OTHER DAY, 0 Refills, Maintenance Start Date: 10/03/15 Status: Ordered fluticasone 50 mcg/inh nasal spray 1 sprays, Nares, Both, 2 times a day, # 16 Gm, 0 Refills, Maintenance, 01/12/19 14:57:22 EDT, [place] Start Date: 01/12/19 Status: Ordered Glucagon Emergency [...] FURTHER REFILLS - PATIENT NEEDS TO CALL [phone] FOR APPT OR CONTACT PCP, Compound Start [...] oldest [Reference Range]: 1 Height 169.3 cm (04/17/19 10:27 AM) Weight 98.1 kg (04/17/19 10:27 AM) Oxygen Saturation [94-100 %] 96 % (04/17/19 10:27 AM) Pulse Rate [55-90 bpm] 87 bpm (04/17/19 10:27 AM) Body Mass Index [18.5-24.99] 34.23 *>HHI* (04/17/19 10:27 AM) Blood Pressure [90-138/55-84 mm Hg] 144/ 80mm Hg *H* (04/17/19 10:27 AM) Mode of Delivery (Oxygen) Room air (04/17/19 10:27 AM) Blood pressure sites Arm, left (04/17/19 10:27 AM) Weight Obtained Via Standing scale (04/17/19 10:27 AM) Social History Social History Type Response Smoking Status Former smoker, quit more than 30 days ago entered on: 02/23/19 Sex
--- OUTSIDE RECORDS SUMMARY | 2022-12-28 08:27 | XMS_ITS | Continuity of Care Document ---
Author Name Unknown Organization [facility] ter Address [address] [place] [address]- Care Team Providers Care Income Tax Expert Name Role Phone Ciro Ragsdale MD Primary Care Physician Encounter [facility] Date(s): 05/05/19 - 05/06/[address] [address]- [place] Discharge Disposition: A-D/C Home Attending Physician: Haroldo Franco MD Admitting Physician: Haroldo Franco MD Referring Physician: Haroldo Franco MD Allergies, Adverse Reactions, Alerts Substance Reaction Severity Status Percocet 5/325 Active Medications aspirin 81 mg oral tablet 81, mg, 1, tablet, By Mouth, Daily, 0, 0, 11/05/07 17:55:02, Print MARINE Number, [id number], Constant Indicator Start Date: 11/05/07 Status: Ordered [...] FURTHER REFILLS - PATIENT NEEDS TO CALL [phone] FOR APPT OR CONTACT PCP, Compound Start [...] Triple vessel coronary arter y disease(Confirmed) Active Results Radiology Reports * Exam Date Time Procedure Performing Provider Status 05/06/19 8:39 AM Chest 2 Views Frontal and Lat Bella Moran; Auth (Verified) Notes: (Chest 2 Views Frontal and Lat) Reason For Exam: Postop RESULT: Chest 2 Views Frontal and Lat Chest 2 Views Frontal and Lat Reason: Postop; Clinical Question(s): Line Placement; Pneumothorax; Special Instructions: Patient may go unmonitored. Please keep film at back desk; Order Comment: s p pacemaker placement COMPARISON: 05/05/2019 FINDINGS: LINES AND TUBES: Left-sided dual-chamber pacemaker, with intact leads. LUNGS AND PLEURA: Clear lungs. Normal pulmonary vascularity. No pleural effusion. No pneumothorax. HEART, MEDIASTINUM AND MARCO: Heart is normal in size. Normal mediastinal and hilar contour. BONES AND SOFT TISSUES: No acute abnormality. IMPRESSION: No acute abnormality. WSN: [id number] Dictated By: Jyoti El MD Dictated Date/Time: 05/06/19 12:21 p Reviewed By: Jyoti El MD Signed By: Jyoti El MD Signed Date/Time: 05/06/19 12:21 pm Transcribed By: PAIGE Transcribed Date/Time: 05/06/19 12:20 pm * Exam Date Time Procedure Performing Provider Status 05/05/19 12:15 PM Chest Portable Ekmickyger Una L ; Francy (Verified) Notes: (Chest Portable) Reason For Exam: Line Placement RESULT: Chest Portable Chest Portable Reason: Line Placement; Clinical Question(s): Pneumothorax; Order Comment: s p pacemaker placement COMPARISON: Scanogram from CT chest 02/13/2019. FINDINGS: LINES AND TUBES: Interval placement of a dual-lead left subclavian pacemaker, leads appear intact and appropriately positioned. LUNGS AND PLEURA: Lung volumes are somewhat diminished with mild basilar atelectasis. No pleural effusion. No pneumothorax. HEART, MEDIASTINUM AND MARCO: Heart is normal in size with post-CABG changes. Normal mediastinal and hilar contour. BONES AND SOFT TISSUES: No acute abnormality, multiple intact sternal wires. IMPRESSION: Status post dual lead pacer insertion, no evidence of complication. WSN: [id number] Dictated By: Wild Foster MD Dictated Date/Time: 05/05/19 12:40 p Reviewed By: Wild Foster MD Signed By: Wild Foster MD Signed Date/Time: 05/05/19 12:40 pm Transcribed By: PAIGE Transcribed Date/Time: 05/05/19 12:38 pm Vital Signs Most recent to oldest [Reference Range]: 1 2 3 Height 170 cm (05/06/19 3:58 AM) 170 cm (05/05/19 7:22 PM) 170 cm (05/05/19 4:34 PM) Weight 97.2 kg (05/06/19 3:58 AM) 97.0 kg (05/05/19 11:36 AM) 97.0 kg (05/05/19 8:24 AM) Oxygen Saturation [94-100 %] 98 % (05/06/19 3:58 AM) 98 % (05/05/19 7:22 PM) 97 % (05/05/19 4:34 PM) Pulse Rate [55-90 bpm] 82 bpm (05/06/19 3:58 AM) 76 bpm (05/05/19 7:22 PM) 81 bpm (05/05/19 4:34 PM) Body Mass Index [18.5-24.99] 33.63 *>HHI* (05/06/19 3:58 AM) 33.56 *>HHI* (05/05/19 8:06 AM) Blood Pressure [90-138/55-84 mm Hg] 144/73mm Hg *H* (05/06/19 3:58 AM) 132/66mm Hg (05/05/19 7:22 PM) 154/81mm Hg *H* (05/05/19 4:34 PM) Respiratory Rate [16-30 br/min] 18 br/min (05/06/19 3:58 AM) 18 br/min (05/06/19 1:36 AM) 18 br/min (05/05/19 7:22 PM) Temperature [96.8-100.4 DegF] 97.9 DegF (05/06/19 3:58 AM) 97.3 DegF (05/05/19 7:22 PM) 97.7 DegF (05/05/19 4:34 PM) Mode of Delivery (Oxygen) Room air (05/06/19 3:58 AM) Room air (05/05/19 7:22 PM) Room air (05/05/19 4:34 PM) Blood pressure sites Arm, right (05/06/19 3:58 AM) Arm, right (05/05/19 7:22 PM) Arm, right (05/05/19 4:34 PM) Temperature Route Oral (05/06/19 3:58 AM) Oral (05/05/19 7:22 PM) Oral (05/05/19 4:34 PM) Dry Weight 97.0 kg (05/05/19 11:36 AM) Weight Obtained Via Bed scale (05/06/19 3:58 AM) Bed scale (05/05/19 8:06 AM) Social History Social History Type Response Smoking Status Former smoker, quit more than 30 days ago entered on: 02/23/19 Sex
--- OUTSIDE RECORDS SUMMARY | 2022-12-28 08:27 | XMS_ITS | Continuity of Care Document ---
Author Name Unknown Organization [facility] Address [address] [place] [id number]- Care Team Providers Care Beer Cooler Name Role Phone Ciro Ragsdale MD Primary Care Physician Encounter [facility] Date(s): 11/06/20 - 03/06/21 [facility] [address] [place] [address]- Attending Physician: Lester Pedroza MD Admitting Physician: Lester Pedroza MD Referring Physician: Ciro Ragsdale MD Allergies, Adverse Reactions, Alerts Substance Reaction Severity Status Percocet 5/325 Active Medications amLODIPine 5 mg oral tablet 5 mg, 1, tablet, By Mouth, Daily, # 30 tablet, Refills 0, Tot. Refills 0, Maintenance, 06/12/20 9:51:00 EST, Route to Pharmacy Electronically, [facility]/pharmacy #[id number], Partial fill upon patient request ifthe prescription is for a schedule II opioid drug.,... 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
--- OUTSIDE RECORDS SUMMARY | 2022-12-28 08:27 | XMS_ITS | Continuity of Care Document ---
Author Name Unknown Organization [facility] Address [address] [place] [address]- Care Team Providers Care Product Applications Engineer Name Role Phone Ciro Ragsdale MD Primary Care Physician Encounter [facility] Date(s): 02/06/21 - 04/18/21 [facility] [address] [place] [address]- Attending Physician: Lester Pedroza MD Admitting Physician: Lester Pedroza MD Referring Physician: Ciro Ragsdale MD Allergies, Adverse Reactions, Alerts Substance Reaction Severity Status Percocet 5/325 Active Medications amLODIPine 5 mg oral tablet 5 mg, 1, tablet, By Mouth, Daily, # 30 tablet, Refills 0, Tot. Refills 0, Maintenance, 06/12/20 9:51:00 EST, Route to Pharmacy Electronically, [facility]/pharmacy #[id number], Partial fill upon patient request ifthe prescription is for a schedule II opioid drug.,... Start Date: 06/12/20 Status: Ordered aspirin 81 mg oral tablet 81, mg, 1, tablet, By Mouth, Daily, 0, 0, 11/05/07 17:55:02, Print MARINE Number, [id number], Constant Indicator Start Date: 11/05/07 Status: Ordered [...] FURTHER REFILLS - PATIENT NEEDS TO CALL [phone] FOR APPT OR CONTACT PCP, Compound Start [...]
--- OUTSIDE RECORDS SUMMARY | 2022-12-28 08:27 | XMS_ITS | Continuity of Care Document ---
Author Name Unknown Organization [facility] Address [address] [place] [address]- Care Team Providers Care Nib Adjuster Name Role Phone Ciro Ragsdale MD S Primary Care Physician En[place] [facility] Date(s): 05/06/20 - 06/05/20 [facility] [address] [place] [id number] Allergies, Adverse Reactions, Alerts Substance Reaction Severity Status Percocet 5/325 Active Medications aspirin 81 mg oral tablet 81, mg, 1, tablet, By Mouth, Daily, 0, 0, 11/05/07 17:55:02, Print MARINE Number, [id number], Constant Indicator Start Date: 11/05/07 Status: Ordered [...] FURTHER REFILLS - PATIENT NEEDS TO CALL [phone] FOR APPT OR CONTACT PCP, Compound Start [...]
--- OUTSIDE RECORDS SUMMARY | 2022-12-28 08:27 | XMS_ITS | Continuity of Care Document ---
Author Name Unknown Organization [facility] Address [address] [place] [phone]- Care Team Providers Care Home Companion Name Role Phone Ciro Ragsdale MD Primary Care Physician Encounter [facility] Date(s): 07/19/19 - 07/29/[address] [address]- [facility] Attending Physician: Viv Doty Admitting Physician: Viv Doty Referring Physician: AdmtrViv Allergies, Adverse Reactions, Alerts Substance Reaction Severity Status Percocet 5/325 Active Medications aspirin 81 mg oral tablet 81, mg, 1, tablet, By Mouth, Daily, 0, 0, 11/05/07 17:55:02, Print MARINE Number, [id number], Constant Indicator Start Date: 11/05/07 Status: Ordered [...] FURTHER REFILLS - PATIENT NEEDS TO CALL [phone] FOR APPT OR CONTACT PCP, Compound Start [...]
--- OUTSIDE RECORDS SUMMARY | 2022-12-28 08:27 | XMS_ITS | Continuity of Care Document ---
Author Name Unknown Organization [facility] ter Address [address] [place] [address]- Care Team Providers Care Staffing Consultant Name Role Phone Ciro Ragsdale MD S Primary Care Physician [place] [facility] 05/17/20 - 06/22/[address] [address] Attending Physician: Neri Fernandez MD Admitting Physician: Neri Fernandez MD Referring Physician: Neri Fernandez MD Allergies, Adverse Reactions, Alerts Substance Reaction Severity Status Percocet 5/325 Active Medications amLODIPine 5 mg oral tablet 5 mg, 1, tablet, By Mouth, Daily, # 30 tablet, Refills 0, Tot. Refills 0, Maintenance, 06/12/20 9:51:00 EST, Route to Pharmacy Electronically, [facility]/pharmacy #[id number], Partial fill upon patient request ifthe prescription is for a schedule II opioid drug.,... Start Date: 06/12/20 Status: Ordered aspirin 81 mg oral tablet 81, mg, 1, tablet, By Mouth, Daily, 0, 0, 11/05/07 17:55:02, Print MARINE Number, [id number], Constant Indicator Start Date: 11/05/07 Status: Ordered [...] FURTHER REFILLS - PATIENT NEEDS TO CALL [phone] FOR APPT OR CONTACT PCP, Compound Start [...]
--- OUTSIDE RECORDS SUMMARY | 2022-12-28 08:27 | XMS_ITS | Continuity of Care Document ---
Author Name Unknown Organization [facility] ter Address [address] [place] [address]- Care Team Providers Care Gun Barrel Finisher Name Role Phone Ciro Ragsdale MD Primary Care Physician [place] [id number] Date(s): 04/15/22 - 08/06/[address] [address]- Attending Physician: Buddy Hoffman MD Admitting Physician: Buddy Hoffman MD Referring Physician: Buddy Hoffman MD Allergies, Adverse Reactions, Alerts Substance Reaction Severity Status Percocet 5/325 Active Medications amLODIPine 5 mg oral tablet 5 mg, 1, tablet, By Mouth, Daily, # 30 tablet, Refills 0, Tot. Refills 0, Maintenance, 06/12/20 9:51:00 EST, Route to Pharmacy Electronically, [facility]/pharmacy #[id number], Partial fill upon patient request ifthe prescription is for a schedule II opioid drug.,... Start Date: 06/12/20 Status: Ordered aspirin 81 mg oral tablet 81, mg, 1, tablet, By Mouth, Daily, 0, 0, 11/05/07 17:55:02, Print MARINE Number, [id number], Constant Indicator Start Date: 11/05/07 Status: Ordered [...] a schedule II opioid drug. Start Date: 8/12/21 Status: Ordered Glucagon Emergency Kit See Instructions, [...] FURTHER REFILLS - PATIENT NEEDS TO CALL [phone] FOR APPT OR CONTACT PCP, Compound Start [...] Team Personnel Name: Carol Meade RN Position: [facility] SN RN Member Role: Primary Care Nurse Name: Samuel Richmond RN Position: [facility] AMB Nurse Member Role: Primary Care Nurse Name: González Chavez RN Position: [facility] RN Member Role: Primary Care Nurse Name: Ciro Ragsdale MD Position: [facility] Physician (General Medicine) Member Role: PCP Address: Address: [address] [place] [address] Care Team Related Persons Name: MEI CONNOR Address: [address] [address]
[2022-12-28] MEDS: methocarbamoL 750 MG TABLET PO (08:36)
[2022-12-28] MEDS: Gabapentin 300 MG CAPSULE PO (08:36)
[2022-12-28] MEDS: Lactated Ringers 1,000 ML 100 ML IVCONT (08:56)
[2022-12-28 10:41] LABS: Glucose, Whole Blood 165 mg/dL (60-115)
[2022-12-28 11:30] LABS: Glucose, Whole Blood 154 mg/dL (60-115)
--- NOTE | 2022-12-28 13:33 | MHC.SHP ---
Pre-Procedural Eval Section A Date of Service: 12/28/22 The patient is an INPATIENT: No The History & Physical has been completed within 30 days and I have reviewed it.: No Section B Chief Complaint: L4-5 spondylolisthesis Relevant Family History (Specify if Yes): No Relevant Social History: None Present Medications: see Short Stay Collaborative assessment Medical History: No relevant PMH ( cleared by Cardiology) History of Previous Operations: No relevant previous surgery Allergies: Allergies Allergy/AdvReac Type Severity Reaction Status Date / Time No Known Allergies Allergy Verified 12/28/22 08:30 Review of Systems Sugical H&P ROS: Negative: Constitution, Cardiovascular, Respiratory, Neurological, Psychiatric, Hem-Onc, Allergic/Immunologic, Gastrointestinal, Genitourinary, Musculoskeletal, Integumentary, Endocrine and Eyes/Ears/Nose/Throat Exam Surgical H&P Exam: Not Evaluated: HEENT, Not Evaluated: Heart, Not Evaluated: Lungs, Not Evaluated: Extremities, Not Evaluated: Abdomen, Not Evaluated: Skin and Not Evaluated: Neurological Plan Diagnosis/Plan: Unchanged ( L4-5 oblique lumbar interbody fusion for lumbar spondylolisthesis) I have reviewed the history and physical and performed a pertinent physical examination on my patient. No changes have occurred unless specified. Time Spent With Patient Time: Total time managing care of this patient today __10__ minutes.
[2022-12-28 13:42] LABS: Glucose, Whole Blood 115 mg/dL (60-115)
[2022-12-28 14:37] LABS: Glucose, Whole Blood 109 mg/dL (60-115)
--- NOTE | 2022-12-28 17:18 | P.OP_ITS ---
Operative Note Operative Note Date of Service: 12/28/22 Narrative: Preop Diagnosis: 1.) Lumbar spondylolisthesis her back pain and bilateral lumbar radiculopathy Procedure: L4-5 discectomy, arthrodesis and implantation cage through an anterolateral, retroperitoneal approach; posterior instrumented fusion L4-5; allograft Consent Informed Consent was obtained for this operation. I have explained the nature, purpose and benefits of the operation. I have discussed the risks and benefit of the operation including possible complications or adverse events with patient/family. Alternative(s) were discussed with the patient with their relative benefits and risks as well as the consequences of not accepting the operation were included in obtaining consent. Surgeon: KRISTAN SUTHERLAND MD, PHD Procedure Assisted By: bobby Mccoy Description of Procedure This patient had multiple lumbar decompressions done. He is suffering from bilateral pain radiating from his back to the front of his thighs and distal legs. MRI shows an L4-5 spondylolisthesis with severe bilateral L4 foraminal stenosis. The patient was offered an oblique lumbar interbody fusion L4-5. The procedure complications were explained. The patient was consented. The patient was brought to the operating room and endotracheally intubated. The patient was turned in a lateral position with the left side up. Prep and drape was done followed by timeout. A small incision was made in the left lower abdominal quadrant. The muscle fascia was opened after which the 3 muscle layer was split to enter the retroperitoneal space. Dilators were docked in the anterior one third of the L4-5 disc space followed by a retractor. The retractor was opened. The L4-5 disc space was exposed. An annulotomy was done after which an elevator Figueroa was used to release the disc material from its endplates and to perforate the contralateral side. A partial discectomy was done. An 8 mm, 10 mm and finally a 12 mm height trial implant were inserted. The discectomy was completed. The endplates were prepared. An 12 x 18 x 55 mm with 6degree lordosis 4 web cage filled with allograft was inserted into the disc space under fluoroscopic guidance. This resulted in reduction of the spondylolisthesis and decompression of the bilateral L4 foramina. The retractor was removed. Hemostasis was done. The incision was closed in 2 layers. Steri-Strips used to approximate incision. An OpSite with Tegaderm was used to cover the incision. This marked first part of the procedure. The patient was turned prone on the Faraz spine table. 2C arms were installed for fluoroscopy. Prep and drape was done followed by a second timeout. 2 paramedian incisions were made lateral from the L4 and L5 pedicles. The muscle fascia was opened after which the muscle layer was split bluntly to expose the posterolateral gutter. The following steps were taken. A pediguard tap was used to create a transpedicular trajectory into the vertebral body. A K wire was placed. A specially designed instrument was advanced over the K wire to decorticate the posterolateral gutter in preparation for the posterolateral fusion. A pedicle screw was advanced over the K wire and the K wire was removed. The steps were done for the bilateral L4 and L5 ped icles. A total of 4 screws were placed with a diameter of 6.5 x 45 mm. Pedicle screws were connected with 50 mm dago bilaterally and locked down with locking caps. The extension towers were removed. The posterolateral gutter was filled with allograft to complete the posterolateral L4-5 fusion Hemostasis was done and the incision was closed in 2 layers. Steri-Strips were used to approximate the incision. An OpSite were taken and was used to cover the incision. All sponge and needle counts were correct. Patient was extubated and transferred in stable is to recovery room. The physician entry level assistant manager inserted the screws and connected them with rods after which performed hemostasis and closed the paramedian incisions under my direct supervision Anesthesia: General Estimated Blood Loss (ml): 70 mL Duration of Surgery: 2 hours Postoperative Plan: Admit to inpatient for observation Complications: None
[2022-12-28] MEDS: HYDROmorphone HCl 0.5 MG/0.5 ML SYRINGE 0.25 MG IVPUSH ×4 (17:55→18:30)
[2022-12-28] MEDS: oxyCODONE HCl Immed Release 5 MG TABLET PO (18:18)
[2022-12-28 18:25] LABS: Glucose, Whole Blood 73 mg/dL (60-115)
[2022-12-28] MEDS: 0.9 % Sodium Chloride 1,000 ML 75 ML IVCONT (19:33)
[2022-12-28] MEDS: Acetaminophen 1,000 MG/100 ML PIGGYBACK 400 MG IV (19:33)
[2022-12-28] MEDS: Metoprolol Tartrate 25 MG TABLET PO (19:34)
[2022-12-28] MEDS: Docusate Sodium 100 MG CAPSULE PO (19:34)
[2022-12-28] MEDS: oxyCODONE HCl Immed Release 5 MG TABLET 10 MG PO (19:34)
[2022-12-28] MEDS: metFORMIN HCl ER 750 MG TAB.ER.24H 1500 MG PO (19:34)
[2022-12-28] MEDS: Atorvastatin Calcium 80 MG TABLET PO (19:38)
--- NOTE | 2022-12-28 19:38 | PHA.MEDREC ---
Pharmacy Consult ? Medication Reconciliation Pharmacy has reviewed the medication reconciliation completed by nursing.
[2022-12-28 20:32] LABS: Glucose, Whole Blood 156 mg/dL (60-115)
[2022-12-28] MEDS: ceFAZolin Sodium/Dextrose,Iso 2 GM/50 ML PIGGYBACK IV (22:07)
[2022-12-28] MEDS: Ketorolac Tromethamine 15 MG/ML VIAL IVPUSH (22:07)
[2022-12-29] MEDS: HYDROmorphone HCl 1 MG/ML SYRINGE IVPUSH (00:43)
[2022-12-29 00:45] VITALS: BP 164/77; PULSE 59; RESP 18; TEMP 36; O2SAT 98
--- NOTE | 2022-12-29 01:43 | PC.NURSE ---
PATIENT IS POST OP DAY 1 AND UPON ASSESSMENT AT 0015 PATIENT STATED HE NEEDED TO VOID, STOOD WITH ASSIST AND URINAL WITH NO RESULTS. PT AMBULATED TO BATHROOM AND NOTED VOIDED IN TOILET VERSUS URINAL. AMBULATED AROUND UNIT TIMES 2 WITH ASSIGNED FINANCIAL MANAGEMENT ANALYST, STEADY, NEURO-VASCULAR WNL'S. PATIENT STATED TO FEEL NO BLADDER PAIN OR PRESSURE AND FELT HE VOIDED ENOUGH FOR NOW, HOWEVER, PT STATED HAD NOT VOIDED PREVIOUSLY ONCE IN HIS ROOM. POST OP ORDERS IN PLACE FOR ST CATHERIZATION AND MONITORING. PT BTB AND BLADDER SCAN REVEALED 636ML OF RETENTION AND STILL STATING NO BLADDER PAIN OR PRESSURE. PT RELUCTANT FOR A CATHETER TO EMPTY BLADDER, BUT AFTER EDUCATION AND DISCUSSION HE AGREED, THEREFORE, STRAIGHT CATH'D PER MD ORDERS FOR 575ML YELLOW URINE AT 0055, TOLERATED WELL. MEDICATED FOR 7/10 BACK PAIN WITH GOOD EFFECT AT 0100. TWO SMALL DRESSINGS AT LOWER BACK C-D-I, ONE SMALL ONE AT LEFT OUTER LOWER ABD WITH PINPOINT DRY STAIN. +PP +CMS. WILL CONTINUE TO MONITOR CLOSELY.
[2022-12-29 03:07] VITALS: BP 152/67; PULSE 63; RESP 16; TEMP 36.1; O2SAT 98
[2022-12-29] MEDS: Acetaminophen 1,000 MG/100 ML PIGGYBACK 400 MG IV ×2 (03:07→07:58)
[2022-12-29] MEDS: ceFAZolin Sodium/Dextrose,Iso 2 GM/50 ML PIGGYBACK IV ×2 (04:57→09:31)
[2022-12-29] MEDS: Ketorolac Tromethamine 15 MG/ML VIAL IVPUSH ×2 (05:02→10:34)
--- NOTE | 2022-12-29 06:37 | PC.NURSE ---
PATIENT ABLE TO VOID 475ML AT 0600, AMBULATED UNIT AGAIN WITH SUPERVISION, STEADY WITH WALKER, RETURNED AND VOIDED ADDITIONAL 175ML. BLADDER SCAN AT THIS TIME =390ML. WILL CONTINUE TO MONITOR AND UPDATE DAY RN.
[2022-12-29 07:07] LABS: Glucose, Whole Blood 266 mg/dL (60-115)
[2022-12-29 07:22] VITALS: BP 144/68; PULSE 54; RESP 16; TEMP 36.6; O2SAT 95
--- NOTE | 2022-12-29 07:45 | PM.DS ---
DS: Providers Provider Date of Service: 12/29/22 Date of admission: 12/28/22 08:18 Primary care physician: Ciro Street MD DS: Diagnosis Discharge Diagnosis (1) Lumbar stenosis with neurogenic claudication: Status: Acute DS: Summary Time Spent with Patient Time attestation: Total time managing care of this patient today ____ minutes. Discharge coordination time: Less than 30 minutes Quality: Safe Use of Opioids Does Pt have an Active Cancer Diagnosis on the Problem List?: No Quality: Stroke Does the patient have a stroke diagnosis?: No Physical Exam Vital Signs: Vital Signs: Last Vital Signs Temp 97.8 F 12/29/22 07:22 Pulse 54 12/29/22 07:22 Resp 16 12/29/22 07:22 BP 144/68 H 12/29/22 07:22 Pulse Ox 95 12/29/22 07:22 O2 Del Method Room Air 12/29/22 07:22 BMI result Body Mass Index 30.8 DS: Data Data Completed and Pending Labs on day of discharge: Laboratory Results - last 24 hr 12/28/22 12/28/22 12/28/22 10:37 11:26 13:38 POC Glucose 165 H 154 H 115 12/28/22 12/28/22 12/28/22 14:34 18:21 20:21 POC Glucose 109 73 156 H 12/29/22 07:04 POC Glucose 266 H Discharge Plan Discharge Anticipated Discharge Date/Time: 12/29/22 07:45 Patient Disposition: Home, Self-Care Discharge Diagnosis: S/P L4-5 Diskectomy Referrals: Ciro Street MD [Primary Care Provider] - 1 Week Discharge Medications: New oxycodone 5 mg tablet 5 mg PO Q6H PRN (Reason: severe pain) Qty: 21 0RF Rx Instructions: Partial Fill upon patient request. acetaminophen 500 mg tablet 500 mg PO Q4H 7 Days Qty: 42 0RF ibuprofen 600 mg tablet 600 mg PO Q6H 7 Days Qty: 28 0RF Continued metformin 500 mg tablet extended release 24 hr 1,500 mg PO BEDTIME insulin aspart U-100 [Novolog FlexPen U-100 Insulin] 100 unit/mL (3 mL) insulin pen 10 - 40 sliding scale dose subcut TIDAC insulin degludec [Tresiba FlexTouch U-200] 200 unit/mL (3 mL) insulin pen 44 unit subcut QAM Rx Instructions: took 22 units this am atorvastatin 80 mg Tablet 80 mg PO BEDTIME amlodipine 5 mg Tablet 5 mg PO DAILY cholecalciferol (vitamin D3) [Vitamin D3] 50 mcg (2,000 unit) Capsule 50 mcg PO DAILY metoprolol tartrate [Lopressor] 50 mg tablet 25 mg PO BID Held tramadol 50 mg tablet 50 - 100 mg PO BID PRN (Reason: Pain) Hold Instructions: Resume on 01/05/23. aspirin 81 mg Tablet,Delayed Release (Dr/Ec) 81 mg PO DAILY Hold Instructions: Resume on 01/04/23. Discharge Orders: Discharge Order (Routine); Ordered 12/29/22 Ordered By: David Guevara Diet: Advance to usual diet Activity on Discharge: As tolerated Stand Alone Forms: Patient Portal Discharge page Activity Restrictions/Additional Instructions: After your spinal surgery we ask you to observe the following restrictions/guidelines: Activity: With lumbar fusion surgery it is normal to have days in the 1st couple of weeks where you have increased leg pain. This usually lasts 1-2 days and self resolves with the continuation of medication. Attempt to stay mobile and continue activity as tolerated. It is normal to feel some discomfort as you increase your activity, but that will improve with time. We ask you avoid heavy lifting or acitivities that cause pain. As a general rule, 8lbs is a safe limit for lifting right after surgery. Walk as much as you feel comfortable but not to exhaustion. You will feel extra tired the first few days after surgery. Stay well hydrated. It is OK to walk up and down stairs You may return to driving when you are off narcotics (such as vicodin, oxycodone, dilaudid, etc), and you are back to normal functional capacity. If you have any concerns please check with office before driving. Return to work is specific to each patient and each surgery, so please speak with your doctor/PA at first follow up. Please bring paperwork such as FMLA at that time if you need it filled out. Medications: It is recommended that you take Tylenol 500 mg every 4 hours for the 1st week postoperatively, alongside ibuprofen 600 mg every 8 hours. We will give you a short supply of narcotics after surgery (usually one weeks worth). Please use this for breakthrough pain that is refractory to the Tylenol ibuprofen and gabapentin. If you need more please call the office but do not use more than prescribed. You will need to give our office 48 hours notice if you need narcotics refilled and we do not fill narcotics on weekends or evenings. If you are on a narcotic, it is a good idea to take a stool softener such as colace or senna to avoid constipation If you take blood thinner such as aspirin, Plavix, Coumadin, Effient, Eliquis etc for conditions such as Afib, DVT, Pulmonary embolus, coronary disease, stents etc please speak with your surgeon about specific details as to when you can resume these medications. You can resume NSAIDs on post op day 1 (eg: Motrin, Naproxen, etc). Follow up: Please call the office, , after surgery to arrange a 3 week follow up for wound check. Wound Care: You may remove your dressing on the first day after surgery. You may leave open to air. Please do not remove the steri strips underneath. they will fall off on their own in one week. IT IS NORMAL FOR THE WOUND TO OOZE OR BE BLOODY FOR A FEW DAYS AFTER SURGERY. IF THIS HAPPENS JUST PLACE NEW DRESSING OVER IT TO AVOID STAINING CLOTHES. You may shower on post op day # 1 We ask that you do not let the water soak the wound. If it does get wet, just towel dry lightly. Please do not scrub your incision or place any type of chemical/ointment on the wound. No tub baths, pools or jacuzzis for one month. If you have any leaking or redness from your wound, or fevers, please call office Care Plan Goals: Return to activity as tolerated Health Concerns: None Plan of Treatment: Follow-up in clinic in 3 weeks Assessment: Stable
--- NOTE | 2022-12-29 07:52 | HO.NEURO.PN ---
Neurosurgery Operative Note Date of Service: 12/29/22 Narrative: POD: 1 Procedure: L4-5 diskectomy and fusion Osmani was seen in his room on . He reports he is up walking around with the aid of a walker and is otherwise doing well. He is voiding, tolerating diet, and will be meeting with PT later this afternoon. He feels his symptoms are much better than pre-operatively. He still reports mild paresthesia in his L thigh, but it does not inhibit his mobility. He is voiding well, tolerating diet. Afebrile, vital signs stable. Full strength 5/5 UE / LE. Back dressings have some staining without signs of hematoma. No active sanguineous drainage. Dressings C/D/I. Plan: Patient meets criteria to be medically discharged home. He was seen at bedside with Dr. Waters. Will need PT evaluation and clearance.
[2022-12-29] MEDS: Insulin Glargine,Hum.rec.anlog 100 UNIT/ML 10 ML VIAL 31 UNIT SUBCUT (07:55)
[2022-12-29] MEDS: Insulin Lispro 100 UNIT/ML 3 ML VIAL SUBCUT (07:56)
[2022-12-29] MEDS: Docusate Sodium 100 MG CAPSULE PO (07:59)
[2022-12-29] MEDS: Cholecalciferol (Vitamin D3) 25 MCG TABLET 50 MCG PO (07:59)
[2022-12-29] MEDS: Metoprolol Tartrate 25 MG TABLET PO (07:59)
[2022-12-29] MEDS: amLODIPine Besylate 5 MG TABLET PO (07:59)
[2022-12-29 08:32] VITALS: BP 144/68; PULSE 54; O2SAT 95
[2022-12-29] MEDS: oxyCODONE HCl Immed Release 5 MG TABLET 10 MG PO (08:38)
--- NOTE | 2022-12-29 08:55 | MHC.CM.PN ---
IMM DELIVERED LIVES WITH [facility]. INDEPENDENT AT BASELINE. + COVID VAX X5 PT BELIEVES HE HAS A COPY OF HCP AT HOME. PCP DR. HINES DP: PT HAS BEEN MEDICALLY CLEARED FOR DC HOME, NO SERVICES. [facility] WILL TRANSPORT HOME.
[2022-12-29 09:47] LABS: Creatinine Clr Calc Pharmacy 73.4; Estimated Glomerular Filt Rate > 60
--- NOTE | 2022-12-29 18:16 | HO.POSTANES ---
Post Anesthesia Evaluation Post Anesthesia Evaluation Date of Service: 12/29/22 Vital Signs: Vital Signs Temp Pulse Resp BP Pulse Ox O2 Del Method 12/29/22 08:32 54 144/68 H 95 12/29/22 07:22 97.8 F 54 16 144/68 H 95 Room Air Anesthesia: General Endotracheal-GETA Mental Status: Awake Pain Control: Satisfactory Nausea/Vomiting: None Hydration: Adequate Anesthesia-Related Issues: No Anes. Related Issues
== END 2022-12-29 10:56 | disposition home or self-care (01) | DRG 460 ==
LOC: HO.SSSA 08:25 → HO.S3 18:14
PROVIDERS: Neurological Surgery; Admitting Provider Physician Assistant; PCP Internal Medicine; Visit Provider Physician Assistant
PROC: 0SG00A0 Fusion of Lumbar Vertebral Joint with Interbody Fusion Device, Anterior Approach, Anterior Column, Open Approach (ICD-10-PCS; principal; 2022-12-28 10:40)
DX: M43.16 Spondylolisthesis, lumbar region (principal); M54.16 Radiculopathy, lumbar region; I25.10 Atherosclerotic heart disease of native coronary artery without angina pectoris; Z90.2 Acquired absence of lung [part of]; I25.2 Old myocardial infarction; Z95.1 Presence of aortocoronary bypass graft; Z85.118 Personal history of other malignant neoplasm of bronchus and lung; Z87.891 Personal history of nicotine dependence; Z79.4 Long term (current) use of insulin; Z79.82 Long term (current) use of aspirin; Z79.84 Long term (current) use of oral hypoglycemic drugs; Z79.899 Other long term (current) drug therapy
CPT/HCPCS: 36415; 82565; 82947; 97162; C1713; J0131; J0690; J1170; J1885; J2250; J2371; J2405; J3010; L8699

== ENCOUNTER → 2022-12-28 08:18 | Outpatient (BNV) | payer MEDICARE, OTHER, SELFPAY | PROVIDERS: Admitting Provider Physician Assistant; PCP Internal Medicine; Visit Provider Neurological Surgery | DX: M48.062 Spinal stenosis, lumbar region with neurogenic claudication (principal); Z48.89 Encounter for other specified surgical aftercare | CPT/HCPCS: 20930; 22558; 22612; 22840; 22853; 99024; 99499 ==

== ENCOUNTER 2023-01-19 14:33 | Outpatient (AMB) | payer MEDICARE, OTHER, SELFPAY ==
--- NOTE | 2023-01-19 14:42 | A.SPINEOV_ITS ---
Intake Intake Visit Reasons: 1st post op Intake Note: Mr. Garza is here today for his 1st post-op viait. 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 He is s/p L4-5 OLIF performed on 12/28/22. He states that he is feeling much better today than he did preoperatively. He is able to ambulate well with no significant pain or weakness in his bilateral posterior thighs. He states that he still has some aches & pain in his left anterior thigh, and still has some low back pain which he describes as more of a discomfort than a chronic pain. He reports that he is no longer taking the oxycodone, and has been using the tramadol that he previously had which he just ran out of. He reports that he only takes tramadol once right before bed to help him sleep. On exam the patient has well-healing incision sites on the posterior lumbar spine, and still had Steri-Strips on the left lateral side which were removed. He states he has been walking daily, and completing all of his ADLs without significant issue. His major complaint is that he is unable to do yard work at this time. We talked extensively about postoperative instructions, including medication regimens. He was advised attempt to utilize Tylenol t.i.d. at a maximum of 1000 mg per dose, and encouraged to stop taking schedule ibuprofen which she has been doing 3 times daily since surgery. He was informed that he can take ibuprofen however it should be used on an as-needed basis rather than scheduled as it can lead to many complications. A prescription was sent in of tramadol 50 mg q.h.s. to his pharmacy, he will be scheduled to be seen again in 6 weeks at which time we will have lumbar spine x- rays completed in order to better visualize the posterior instrumentation at his final postoperative visit. Total amount of time spent in this visit was 20 minutes in discussion of sym ptoms, X-ray imaging scheduling, and subsequent plan of care. David Waters MD,PhD [facility] Medications: New tramadol 50 mg PO BEDTIME PRN 20 tabs 0RF severe pain (scale score 7-10) Coding Level of Care Code Est Pt Level 3 (36695) Diagnoses S/P lumbar spinal fusion Z98.1
== END 2023-01-19 15:00 | disposition home or self-care (01) ==
PROVIDERS: PCP Internal Medicine; Visit Provider Physician Assistant
DX: Z98.1 Arthrodesis status (principal)
CPT/HCPCS: 99024

== ENCOUNTER → 2023-01-19 14:33 | Outpatient (BNVA) | payer MEDICARE, OTHER, SELFPAY | PROVIDERS: PCP Internal Medicine; Visit Provider Physician Assistant | DX: Z98.1 Arthrodesis status (principal) | CPT/HCPCS: 99212 ==

== ENCOUNTER 2023-03-10 12:32 | Outpatient (REF) | payer MEDICARE, OTHER, SELFPAY ==
--- NOTE | ~2023-03-10 | XR_ITS ---
EXAMINATION: XR LUMBOSACRAL SPINE WITH FLEXION AND EXTENSION VIEWS CLINICAL INFORMATION: Arthrodesis status COMPARISON: None available. TECHNIQUE: AP, lateral and lateral flexion and extension views of the lumbar spine. FINDINGS: There 5 nonrib-bearing lumbar-type vertebral bodies. The height of the vertebral bodies is well-maintained. There are transpedicular screws and adjoining rods at L4-L5. Disc spacer is seen at L4-L5. There is grade 1 anterolisthesis of L4 with respect to L5 which is unchanged on flexion and extension. The hardware appears intact. There is marked degenerative facet joint disease L5-S1. XR/XR lumbar spine 4V min IMPRESSION: 1. L4-L5 fusion without evidence of hardware complication. 2. Grade 1 anterolisthesis of L4 with respect to L5, unchanged on flexion and extension.
== END 2023-03-10 12:33 | disposition home or self-care (01) ==
LOC: HO.HOSX 12:32
PROVIDERS: Visit Provider Physician Assistant
DX: Z48.89 Encounter for other specified surgical aftercare (principal); Z98.1 Arthrodesis status
CPT/HCPCS: 72110; 99212

== ENCOUNTER 2023-03-10 14:56 | Outpatient (AMB) | payer MEDICARE, OTHER, SELFPAY ==
--- NOTE | 2023-03-10 15:44 | A.SPINEOV_ITS ---
Intake Intake Visit Reasons: 2nd post op with xrays Allergies No Known Allergies Allergy (Verified 12/28/22 08:30) Assessment & Plan Assessment & Plan (1) S/P lumbar spinal fusion: Code(s): Z98.1 - Arthrodesis status Plan Procedure: L4-5 OLIF Osmani comes in today for his 2nd postoperative visit. He continues to report that he is very satisfied with the surgery and feels much better than he did pre-operatively. He reports that he is back to his normal activities aside from doing any significant heavy lifting / yard work. He reports that he no longer suffers from the shooting pains in his bilateral anterior / posterior thighs. He does still report mild axial low back pain with good relief of pain with [id number] pain medications. He no longer feels he needs to take the Tramadol medication that he was put on at his previous visit. His x-rays were reviewed with him, showing stable posterior instrumentation unchanged from the x-rays during surgery. No neurological deficits. Mobility is intact. Sensation grossly intact. Patient is able to ambulate well, rises from a seated position without difficulty. Incision sites are closed, well healing, with no signs of drainage. Osmani will. not need continued follow-up in may be discharged the patient this time. He can follow-up as needed if he needs to in the future. David Waters MD,PhD [facility] Orders: Orders XR lumbar spine 4V min Today Z98.1 - Arthrodesis status Coding Level of Care Code Global (71675) Diagnoses S/P lumbar spinal fusion Z98.1
== END 2023-03-10 15:45 | disposition home or self-care (01) ==
PROVIDERS: PCP Internal Medicine; Visit Provider Neurological Surgery
DX: Z98.1 Arthrodesis status (principal)
CPT/HCPCS: 99024

== ENCOUNTER 2023-07-13 14:55 | Outpatient (REF) | payer MEDICARE, OTHER, SELFPAY ==
--- NOTE | ~2023-07-13 | XR_ITS ---
EXAMINATION: XR LUMBOSACRAL SPINE WITH OBLIQUES CLINICAL INFORMATION: Status-post arthrodesis. COMPARISON: Lumbar spine radiographs dated 03/10/2023. TECHNIQUE: AP and lateral (neutral, flexion and extension) views of the lumbosacral spine are submitted. FINDINGS: There is bony demineralization. There is a mild thoracolumbar levoscoliosis. There is a chronic mild L1 anterior wedge compression fracture, and a chronic moderate L5 anterior wedge compression fracture is seen. There is a stable grade 1 anterolisthesis status-post L4-L5 anterior fusion and discectomy, with intact posterior fixator rods, pedicular screws and disc spacer. No hardware failure or loosening is seen. There is mild posterior disc space narrowing at L1-L2, L2-L3 and L5-S1. There is no acute fracture or spondylolisthesis. There is multi-level marked lower thoracic and mild lumbar endplate arthropathy. There are aortoiliac atherosclerotic calcifications. XR/XR lumbar spine 4V min IMPRESSION: There is stable alignment status-post L4-L5 posterior fusion and discectomy. No hardware failure or loosening is seen.
== END 2023-07-13 14:56 | disposition home or self-care (01) ==
LOC: HO.HOSX 14:55
PROVIDERS: PCP Internal Medicine; Visit Provider Physician Assistant
DX: Z98.1 Arthrodesis status (principal)
CPT/HCPCS: 72110; 99212

== ENCOUNTER 2023-07-13 14:55 | Outpatient (AMB) | payer MEDICARE, OTHER, SELFPAY ==
--- NOTE | 2023-07-13 15:07 | HO.SPINEOV ---
Intake Intake Visit Reasons: low back pain Intake Note: Mr. Garza is here today c/o low back pain. 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 He underwent a very successful L4-5 interbody fusion done last year with excellent results with his anterior thigh pain. However, he still has the exact same numbing discomfort in the low back that he had prior to the surgery. We were hoping it would improvement with the correction of the spondylolisthesis but it does not seem to have done a lot to improve that symptom. He is still continuing to be active and will take a [id number] pain medications if he needs it. He has no focal lower extremity symptoms or deficits in his lower extremities. I am going to order new x-rays and new MRI. He had previously had a lumbar decompression done before our surgery and I looked at his old MRI and he has a very large defect at L4-5 that may just be giving him enough issue related to the scar tissue that despite our results from surgery it may be something he has to live with. Something similar to a failed back syndrome. Thankfully he still active and he is getting ready for golf season so I do not think it is going to be disabling but he would like it treated. I would like to low a little more about the anatomy before send him back to Dr. Hoffman just to be sure there is nothing that we can deal with surgically. I will have the MRI done at [facility] because of his history of pacemaker and that is more convenient for to be done there. Total amount of time spent in this visit was 20 minutes in discussion of symptoms, previous lumbar imaging results and subsequent plan of care Rocky Waters MD,PhD [facility] Orders: Orders MR lumbar spine wo con 07/13/23 M48.062 - Spinal stenosis, lumbar region with neurogenic claudication XR lumbar spine 4V min 07/13/23 Z98.1 - Arthrodesis status Coding Level of Care Code Est Pt Level 3 (26339) Diagnoses S/P lumbar spinal fusion Z98.1
== END 2023-07-13 15:29 | disposition home or self-care (01) ==
PROVIDERS: PCP Internal Medicine; Visit Provider Physician Assistant
DX: Z98.1 Arthrodesis status (principal)
CPT/HCPCS: 99213